=== PATIENT | male | born 1980 | race American Indian/Alaskan Native ===

== ENCOUNTER 2018-12-13 18:20 | Emergency (ER) | payer MEDICAID, MEDICARE ==
[~2018-12-13] VITALS: Ht 157.5 cm; Wt 73.6 kg
[2018-12-13 18:27] VITALS: BP 173/104
[2018-12-13 18:53] LABS: BASOPHILS % (AUTO) 0.6 % (0-1); EOSINOPHILS # (AUTO) 0.1 X10'3 (0-0.9); EOSINOPHILS % (AUTO) 1.7 % (0-6); HEMATOCRIT 23.9 % (42.0-52.0); LYMPHOCYTES % (AUTO) 23.4 % (21-51); MEAN CORPUSCULAR HEMOGLOBIN 30.3 PG (27.0-31.0); MEAN CORPUSCULAR HGB CONC 33.3 g/dL (33.0-36.5); MEAN CORPUSCULAR VOLUME 90.9 FL (78-98); MEAN PLATELET VOLUME 7.9 FL (7.4-10.4); MONOCYTES # (AUTO) 0.5 X10'3 (0-0.9); MONOCYTES % (AUTO) 6.3 % (2-12); NEUTROPHILS # (AUTO) 5.7 X10'3 (1.8-7.7); PLATELET COUNT 187 X10'3 (140-440); RED BLOOD COUNT 2.63 X10'6 (4.70-6.10); RED CELL DISTRIBUTION WIDTH 13.3 % (11.5-14.5); WHITE BLOOD COUNT 8.4 X10'3 (4.5-11.0)
[2018-12-13 19:05] LABS: ALANINE AMINOTRANSFERASE 17 U/L (12-78); ALBUMIN 3.8 G/DL (3.4-5.0); ALBUMIN/GLOBULIN RATIO 1.1 (1.1-1.5); ALKALINE PHOSPHATASE 75 IU/L (46-116); ANION GAP 14 (8-16); ASPARTATE AMINO TRANSFERASE 12 U/L (10-37); BILIRUBIN,TOTAL 0.5 MG/DL (0.1-1.0); BLOOD UREA NITROGEN 65 MG/DL (7-18); BUN/CREATININE RATIO 5.4 (5.4-32.0); CALCIUM 9.3 MG/DL (8.5-10.1); CHLORIDE 105 MMOL/L (99-107); CREATININE 12.03 MG/DL (0.60-1.10); GLUCOSE 147 MG/DL (70-104); POTASSIUM 3.7 MMOL/L (3.5-5.1); SODIUM 141 MMOL/L (135-145); TOTAL CARBON DIOXIDE 21.8 MMOL/L (24-32); TOTAL PROTEIN 7.2 G/DL (6.4-8.2); eGFR 5 ML/MIN
== END 2018-12-13 19:58 | disposition home or self-care (01) ==
LOC: ER 18:22
DX: N18.4 Chronic kidney disease, stage 4 (severe) (principal); Z94.0 Kidney transplant status; Z98.890 Other specified postprocedural states
CPT/HCPCS: 36415; 80053; 85025; 85610; 86885; 86900; 86901; 99283

== ENCOUNTER 2018-12-16 11:22 | Day surgery (SDC) | payer MEDICAID ==
[~2018-12-16] VITALS: Ht 157.5 cm; Wt 74.1 kg
[2018-12-16 11:40] VITALS: BP 162/101
[2018-12-16] MEDS ORDERED: normal saline 1000ml 1,000 ML IV PRN (12:00)
[2018-12-16] MEDS ORDERED: midazolam 2 mg/2 ml injection IV PRN (12:30)
[2018-12-16] MEDS ORDERED: fentaNYL/PF 50MCG/1 ML 2ML syringe IV PRN (12:30)
[2018-12-16] MEDS ORDERED: heparin 1,000 units/ml 10ml inj ICATH ONE (12:30)
[2018-12-16] MEDS ORDERED: LIDOcaine 1%/PF 5ML 10 MG/ML VIAL SQ ONE (12:30)
[2018-12-16] MEDS ORDERED: midazolam 2 mg/2 ml injection ONE (12:33)
[2018-12-16] MEDS ORDERED: LIDOcaine 1%/PF 5ML 10 MG/ML VIAL ONE (12:33)
[2018-12-16] MEDS ORDERED: fentaNYL/PF 50MCG/1 ML 2ML syringe ONE (12:33)
[2018-12-16] MEDS ORDERED: heparin 1,000unit/ml 10ml vial 10 ML ONE (12:33)
[2018-12-16] MEDS ORDERED: MYCO500T PO (12:41)
[2018-12-16] MEDS ORDERED: PRED5TAB PO (12:41)
[2018-12-16] MEDS ORDERED: TACR1CAP28 PO (12:41)
[2018-12-16] MEDS ORDERED: GLIP5TAB13 PO (12:41)
[2018-12-16] MEDS ORDERED: DILT240C90 PO (12:41)
[2018-12-16] MEDS ORDERED: LIDOcaine 1% (10mg/ml) 2ml vial SQ ONE (12:55)
[2018-12-16 13:50] VITALS: BP 169/111
[2018-12-16 14:15] VITALS: BP 193/105
[2018-12-16 14:30] VITALS: BP 192/61
[2018-12-16 14:45] VITALS: BP 172/105
[2018-12-16 15:40] LABS: BASOPHILS % (AUTO) 0.5 % (0-1); EOSINOPHILS # (AUTO) 0.1 X10'3 (0-0.9); EOSINOPHILS % (AUTO) 1.4 % (0-6); HEMATOCRIT 24.2 % (42.0-52.0); HEMOGLOBIN 8.1 g/dl (14.0-17.9); LYMPHOCYTES # (AUTO) 1.7 X10'3 (1.1-4.8); LYMPHOCYTES % (AUTO) 19.1 % (21-51); MEAN CORPUSCULAR HEMOGLOBIN 30.2 PG (27.0-31.0); MEAN CORPUSCULAR HGB CONC 33.5 g/dL (33.0-36.5); MEAN PLATELET VOLUME 7.5 FL (7.4-10.4); MONOCYTES # (AUTO) 0.4 X10'3 (0-0.9); NEUTROPHILS # (AUTO) 6.8 X10'3 (1.8-7.7); PLATELET COUNT 191 X10'3 (140-440); RED BLOOD COUNT 2.69 X10'6 (4.70-6.10); RED CELL DISTRIBUTION WIDTH 13.4 % (11.5-14.5); WHITE BLOOD COUNT 9.1 X10'3 (4.5-11.0)
[2018-12-16 15:54] LABS: ALBUMIN 3.8 G/DL (3.4-5.0); ANION GAP 15 (8-16); BLOOD UREA NITROGEN 67 MG/DL (7-18); BUN/CREATININE RATIO 5.8 (5.4-32.0); CHLORIDE 106 MMOL/L (99-107); CREATININE 11.56 MG/DL (0.60-1.10); GLUCOSE 162 MG/DL (70-104); PHOSPHORUS 4.3 MG/DL (2.3-4.5); POTASSIUM 4.2 MMOL/L (3.5-5.1); SODIUM 143 MMOL/L (135-145); TOTAL CARBON DIOXIDE 21.8 MMOL/L (24-32); eGFR 5 ML/MIN
[2018-12-18 07:17] LABS: HBSAG SCREEN Negative (Negative)
== END 2018-12-16 15:40 | disposition home or self-care (01) ==
LOC: SSTAY O 11:22
PROVIDERS: ATTEND Radiology Diagnostic Radiology
DX: E11.22 Type 2 diabetes mellitus with diabetic chronic kidney disease (principal); I12.0 Hypertensive chronic kidney disease with stage 5 chronic kidney disease or end stage renal disease; N18.5 Chronic kidney disease, stage 5; J44.9 Chronic obstructive pulmonary disease, unspecified; Z94.0 Kidney transplant status; Z79.84 Long term (current) use of oral hypoglycemic drugs; Z79.899 Other long term (current) drug therapy
CPT/HCPCS: 36415; 36558; 71046; 76937; 77001; 80069; 85025; 87340; C1750; C1894; J1644; J2250; J3010; 99152; 99153; A9270

== ENCOUNTER 2018-12-18 19:00 | Emergency (ER) | payer MEDICAID ==
[~2018-12-18] VITALS: Ht 167.6 cm; Wt 73.6 kg
[~2018-12-18 19:00] MED LIST: DILT240C90 PO; GLIP5TAB13 PO; MYCO500T PO; PRED5TAB PO; TACR1CAP28 PO
[2018-12-18 19:01] VITALS: BP 180/102
[2018-12-18] MEDS ORDERED: HYDR-3965 PO (20:00)
== END 2018-12-18 20:06 | disposition home or self-care (01) ==
LOC: ER 19:00
DX: T82.43XA Leakage of vascular dialysis catheter, initial encounter (principal); N18.4 Chronic kidney disease, stage 4 (severe); Z98.890 Other specified postprocedural states; Z94.0 Kidney transplant status; Z79.899 Other long term (current) drug therapy; Y84.1 Kidney dialysis as the cause of abnormal reaction of the patient, or of later complication, without mention of misadventure at the time of the procedure; Y92.89 Other specified places as the place of occurrence of the external cause
CPT/HCPCS: 99283

== ENCOUNTER 2018-12-20 13:53 | Emergency (ER) | payer MEDICAID ==
[~2018-12-20] VITALS: Ht 165.1 cm; Wt 75.0 kg
[~2018-12-20 13:53] MED LIST changes: +HYDR-3965 PO
[2018-12-20 13:54] VITALS: BP 179/102
--- NOTE | 2018-12-20 14:54 | NUR ---
COMPLETED STERILE DRESSING CHANGED FOR DIALYSIS CATHETER. NO BLEEDING NOTED AFTER DRESSING CHANGE.
== END 2018-12-20 14:59 | disposition home or self-care (01) ==
LOC: ER 13:54
DX: T82.43XA Leakage of vascular dialysis catheter, initial encounter (principal); N18.4 Chronic kidney disease, stage 4 (severe); Z98.890 Other specified postprocedural states; Z94.0 Kidney transplant status; Z79.899 Other long term (current) drug therapy; Y84.1 Kidney dialysis as the cause of abnormal reaction of the patient, or of later complication, without mention of misadventure at the time of the procedure; Y92.89 Other specified places as the place of occurrence of the external cause
CPT/HCPCS: 99282

== ENCOUNTER 2018-12-20 15:57 | Inpatient (IN) | payer MEDICAID ==
[~2018-12-20] VITALS: Ht 165.1 cm; Wt 72.7 kg
[2018-12-20] VITALS (7 sets, daily range): BP systolic 176–184; BP diastolic 102–105
[2018-12-20 18:03] LABS: BASOPHILS % (AUTO) 0.4 % (0-1); EOSINOPHILS # (AUTO) 0.2 X10'3 (0-0.9); EOSINOPHILS % (AUTO) 2.2 % (0-6); LYMPHOCYTES # (AUTO) 1.3 X10'3 (1.1-4.8); LYMPHOCYTES % (AUTO) 18.6 % (21-51); MEAN CORPUSCULAR HEMOGLOBIN 30.4 PG (27.0-31.0); MEAN CORPUSCULAR HGB CONC 33.5 g/dL (33.0-36.5); MEAN CORPUSCULAR VOLUME 90.7 FL (78-98); MEAN PLATELET VOLUME 7.3 FL (7.4-10.4); MONOCYTES # (AUTO) 0.5 X10'3 (0-0.9); MONOCYTES % (AUTO) 6.9 % (2-12); NEUTROPHILS # (AUTO) 5.1 X10'3 (1.8-7.7); NEUTROPHILS % (AUTO) 71.9 % (42-75); PLATELET COUNT 151 X10'3 (140-440); RED CELL DISTRIBUTION WIDTH 13.6 % (11.5-14.5); WHITE BLOOD COUNT 7.1 X10'3 (4.5-11.0)
[2018-12-20] MEDS ORDERED: NORMAL SALINE IV ONE (18:15)
[2018-12-20] MEDS ORDERED: DESMOPRESSIN IV ONE (18:15)
[2018-12-20 18:16] LABS: ALANINE AMINOTRANSFERASE 14 U/L (12-78); ALBUMIN 3.5 G/DL (3.4-5.0); ALBUMIN/GLOBULIN RATIO 1.1 (1.1-1.5); ALKALINE PHOSPHATASE 77 IU/L (46-116); ANION GAP 14 (8-16); ASPARTATE AMINO TRANSFERASE 10 U/L (10-37); BILIRUBIN,TOTAL 0.3 MG/DL (0.1-1.0); BLOOD UREA NITROGEN 72 MG/DL (7-18); BUN/CREATININE RATIO 5.3 (5.4-32.0); CHLORIDE 106 MMOL/L (99-107); CREATININE 13.46 MG/DL (0.60-1.10); GLUCOSE 158 MG/DL (70-104); HEMATOCRIT 19.9 % (42.0-52.0); HEMOGLOBIN 6.7 g/dl (14.0-17.9); POTASSIUM 4.6 MMOL/L (3.5-5.1); SODIUM 141 MMOL/L (135-145); TOTAL CARBON DIOXIDE 21.3 MMOL/L (24-32); TOTAL PROTEIN 6.7 G/DL (6.4-8.2); eGFR 4 ML/MIN
[2018-12-20] MEDS ORDERED: ondansetron/PF 4mg/2ml inj IV PRN (20:15)
[2018-12-20] MEDS ORDERED: acetaminophen 325mg tablet PO PRN ×2 (20:15)
--- NOTE | 2018-12-20 20:43 | NUR ---
Received report from Ozzy in the ER. Pt arrived on the unit via wheelchair and was able to transfer easily to the bed with a steady gait. Pt was placed on tele # [id number], VSS, no signs of distress. Will continue to monitor.
--- NOTE | 2018-12-20 23:00 | NUR ---
I contacted Dr. Moreno the pts admitting automatic line set up mechanic regarding BP's of 183/102, 184/105, and 176/102 taken when pt arrived on the unit and while administering blood. MD ordered a one time dose of Cardizem 120mg to be given immediately. Will continue to monitor.
[2018-12-20] MEDS ORDERED: diltiazem CD 120mg capsule (once-daily) PO ONE (23:05)
[2018-12-21] VITALS (8 sets, daily range): BP systolic 144–194; BP diastolic 88–109
--- NOTE | 2018-12-21 00:05 | NUR ---
Received report from Prabhu in the ER. Pt arrived on the unit via gurney. She was able to transfer from the gurney to her bed with moderate assist. Pt wobbly on her feet with mild weakness. Her son has accompanied her and is staying at bedside. VSS, no signs of distress, will continue to monitor. Addendum: 12/21/18 at 0248 by Evelyn Garcia RN note entered on the wrong pt, please disregard.
--- NOTE | 2018-12-21 06:18 | NUR ---
Problems reprioritized. Patient report given, questions answered & plan of care reviewed with Connie GARY and Hortencia GARY.
[2018-12-21 06:34] LABS: BASOPHILS % (AUTO) 0.4 % (0-1); EOSINOPHILS # (AUTO) 0.2 X10'3 (0-0.9); EOSINOPHILS % (AUTO) 1.9 % (0-6); HEMATOCRIT 23.9 % (42.0-52.0); HEMOGLOBIN 8.2 g/dl (14.0-17.9); LYMPHOCYTES # (AUTO) 1.5 X10'3 (1.1-4.8); LYMPHOCYTES % (AUTO) 16.9 % (21-51); MEAN CORPUSCULAR HEMOGLOBIN 31.1 PG (27.0-31.0); MEAN CORPUSCULAR HGB CONC 34.2 g/dL (33.0-36.5); MEAN CORPUSCULAR VOLUME 90.8 FL (78-98); MEAN PLATELET VOLUME 7.8 FL (7.4-10.4); MONOCYTES # (AUTO) 0.7 X10'3 (0-0.9); MONOCYTES % (AUTO) 7.6 % (2-12); NEUTROPHILS # (AUTO) 6.6 X10'3 (1.8-7.7); NEUTROPHILS % (AUTO) 73.2 % (42-75); PLATELET COUNT 150 X10'3 (140-440); RED BLOOD COUNT 2.63 X10'6 (4.70-6.10); WHITE BLOOD COUNT 9.1 X10'3 (4.5-11.0)
--- NOTE | 2018-12-21 06:46 | NUR ---
Patient in room PCU 3013. I have received report from Evelyn GARY and had the opportunity to ask questions and assume patient care. Pt is awake in bed, all needs met at this time, will continue to monitor.
[2018-12-21 06:47] LABS: ALANINE AMINOTRANSFERASE 13 U/L (12-78); ALBUMIN 3.7 G/DL (3.4-5.0); ALBUMIN/GLOBULIN RATIO 1.1 (1.1-1.5); ALKALINE PHOSPHATASE 76 IU/L (46-116); ANION GAP 17 (8-16); ASPARTATE AMINO TRANSFERASE 17 U/L (10-37); BILIRUBIN,TOTAL 0.5 MG/DL (0.1-1.0); BLOOD UREA NITROGEN 78 MG/DL (7-18); CALCIUM 9.1 MG/DL (8.5-10.1); CHLORIDE 104 MMOL/L (99-107); GLUCOSE 83 MG/DL (70-104); MAGNESIUM 2.2 MG/DL (1.5-2.4); PHOSPHORUS 4.6 MG/DL (2.3-4.5); SODIUM 139 MMOL/L (135-145); TOTAL CARBON DIOXIDE 17.6 MMOL/L (24-32); TOTAL PROTEIN 7.1 G/DL (6.4-8.2); eGFR 4 ML/MIN
[2018-12-21 06:48] LABS: POTASSIUM 5.2 MMOL/L (3.5-5.1)
--- NOTE | 2018-12-21 06:51 | NUR ---
Patient in room PCU 3013. I have received report from ABDIRAHMAN Rivas and had the opportunity to ask questions and assume patient care.
[2018-12-21] MEDS ORDERED: MYCOPHENOLATE MOFETIL PO SCH (08:00)
[2018-12-21] MEDS: glipizide 5mg tablet PO SCH (08:00)
[2018-12-21] MEDS ORDERED: DILTIAZEM HCL 120 MG PO SCH (08:00)
[2018-12-21] MEDS: mycophenolate mofetil 250mg capsule PO SCH (08:00)
[2018-12-21] MEDS ORDERED: diltiazem CD 120mg capsule (once-daily) PO SCH (08:00)
[2018-12-21] MEDS ORDERED: heparin 1,000unit/ml 10ml vial 10 ML IV ONE (08:01)
[2018-12-21] MEDS ORDERED: heparin 1,000 units/ml 10ml inj IV ONE (08:05)
[2018-12-21] MEDS ORDERED: heparin 1,000 units/ml 10ml inj HE ONE ×2 (08:05)
[2018-12-21] MEDS ORDERED: albumin (human) 25% 100ml IV 100 ML IV PRN (08:05)
[2018-12-21] MEDS ORDERED: epoetin 20,000 units/ml inj IV ONE (08:05)
[2018-12-21] MEDS: predniSONE 5mg tablet PO SCH (08:19)
[2018-12-21] MEDS: tacrolimus anhydrous 1mg capsule PO SCH (08:24)
[2018-12-21] MEDS ORDERED: labetalol 20mg/4ml (5mg/ml) syringe IV ONE (11:25)
--- NOTE | 2018-12-21 16:28 | NUR ---
Problems reprioritized. Patient report given, questions answered & plan of care reviewed with Anshul GARY patient will be transferred to [facility] [place].
--- NOTE | 2018-12-21 17:00 | NUR ---
REVIEWED PATIENT RECONCILE HOME MEDICATIONS, DISCOVERED PATIENT WAS TAKING IBUPROFEN FOR PAIN MANAGEMENT, EDUCATED PATIENT ON MEDICATION AND SIDE EFFECTS, RECOMMENDED TO PATIENT TO CLEAR WITH DOCTOR FIRST.
--- NOTE | 2018-12-21 18:22 | NUR ---
Problems reprioritized. Patient report given, questions answered & plan of care reviewed with ABDIRAHMAN Tate. Addendum: 12/21/18 at 1822 by Abby Germain RN Amended: Links added.
--- NOTE | 2018-12-21 18:32 | NUR ---
Patient in room ORTHO 4017. I have received report from ABDIRAHMAN Mora and had the opportunity to ask questions and assume patient care.
[2018-12-21] MEDS ORDERED: hydrALAZINE 20mg/ml inj. IV ONE (21:55)
[2018-12-22 06:00] VITALS: BP 172/98
--- NOTE | 2018-12-22 06:00 | NUR ---
Patient in room ORTHO 4017. I have received report from Lea GARY and had the opportunity to ask questions and assume patient care.
[2018-12-22 06:11] LABS: BASOPHILS % (AUTO) 0.6 % (0-1); EOSINOPHILS # (AUTO) 0.1 X10'3 (0-0.9); EOSINOPHILS % (AUTO) 1.5 % (0-6); HEMATOCRIT 24.8 % (42.0-52.0); HEMOGLOBIN 8.5 g/dl (14.0-17.9); LYMPHOCYTES # (AUTO) 1.7 X10'3 (1.1-4.8); MEAN CORPUSCULAR HEMOGLOBIN 30.7 PG (27.0-31.0); MEAN CORPUSCULAR HGB CONC 34.5 g/dL (33.0-36.5); MEAN CORPUSCULAR VOLUME 89.1 FL (78-98); MEAN PLATELET VOLUME 7.3 FL (7.4-10.4); MONOCYTES # (AUTO) 0.8 X10'3 (0-0.9); MONOCYTES % (AUTO) 9.7 % (2-12); NEUTROPHILS # (AUTO) 5.4 X10'3 (1.8-7.7); NEUTROPHILS % (AUTO) 67.2 % (42-75); PLATELET COUNT 163 X10'3 (140-440); RED BLOOD COUNT 2.78 X10'6 (4.70-6.10); RED CELL DISTRIBUTION WIDTH 13.7 % (11.5-14.5)
[2018-12-22 06:19] LABS: ALANINE AMINOTRANSFERASE 16 U/L (12-78); ALBUMIN 3.6 G/DL (3.4-5.0); ALBUMIN/GLOBULIN RATIO 1.1 (1.1-1.5); ALKALINE PHOSPHATASE 84 IU/L (46-116); ANION GAP 12 (8-16); ASPARTATE AMINO TRANSFERASE 13 U/L (10-37); BILIRUBIN,TOTAL 0.5 MG/DL (0.1-1.0); BLOOD UREA NITROGEN 41 MG/DL (7-18); BUN/CREATININE RATIO 4.7 (5.4-32.0); CALCIUM 9.3 MG/DL (8.5-10.1); CHLORIDE 103 MMOL/L (99-107); GLUCOSE 116 MG/DL (70-104); MAGNESIUM 2.2 MG/DL (1.5-2.4); PHOSPHORUS 5.4 MG/DL (2.3-4.5); POTASSIUM 3.9 MMOL/L (3.5-5.1); SODIUM 141 MMOL/L (135-145); TOTAL CARBON DIOXIDE 26.3 MMOL/L (24-32); eGFR 7 ML/MIN
--- NOTE | 2018-12-22 06:20 | NUR ---
Problems reprioritized. Patient report given, questions answered & plan of care reviewed with ABDIRAHMAN Choi.
[2018-12-22] MEDS: mycophenolate mofetil 250mg capsule PO SCH (07:19)
[2018-12-22] MEDS: tacrolimus anhydrous 1mg capsule PO SCH (07:19)
[2018-12-22] MEDS: predniSONE 5mg tablet PO SCH (07:20)
[2018-12-22] MEDS: lisinopril 20mg tablet PO SCH (07:20)
[2018-12-22] MEDS: glipizide 5mg tablet PO SCH (07:20)
[2018-12-22] MEDS: diltiazem CD 120mg capsule (once-daily) PO SCH (07:20)
[2018-12-22] MEDS ORDERED: heparin 1,000unit/ml 10ml vial 10 ML IV ONE (09:03)
[2018-12-22] MEDS ORDERED: epoetin 20,000 units/ml inj IV ONE (09:05)
[2018-12-22] MEDS ORDERED: heparin 1,000 units/ml 10ml inj IV ONE (09:05)
[2018-12-22] MEDS ORDERED: albumin (human) 25% 100ml IV 100 ML IV PRN (09:05)
[2018-12-22] MEDS ORDERED: heparin 1,000 units/ml 10ml inj HE ONE ×2 (09:10)
[2018-12-22] MEDS: hyDRALAzine 10mg tablet PO SCH ×2 (15:28→23:55)
[2018-12-22 18:00] VITALS: BP 134/84
--- NOTE | 2018-12-22 18:00 | NUR ---
Patient in room ORTHO 4017. I have received report from calhoun and had the opportunity to ask questions and assume patient care.
--- NOTE | 2018-12-22 18:29 | NUR ---
Problems reprioritized. Patient report given, questions answered & plan of care reviewed with Nicolas Rn and Mamadou GARY.
[2018-12-22 22:00] VITALS: BP 136/86
[2018-12-23 06:00] VITALS: BP 142/92
--- NOTE | 2018-12-23 06:05 | NUR ---
Patient in room ORTHO 4017. I have received report from Mamadou Portillo, and had the opportunity to ask questions and assume patient care.
[2018-12-23 06:30] LABS: ALANINE AMINOTRANSFERASE 14 U/L (12-78); ALBUMIN 3.5 G/DL (3.4-5.0); ALBUMIN/GLOBULIN RATIO 1.1 (1.1-1.5); ALKALINE PHOSPHATASE 71 IU/L (46-116); ANION GAP 9 (8-16); ASPARTATE AMINO TRANSFERASE 9 U/L (10-37); BILIRUBIN,TOTAL 0.6 MG/DL (0.1-1.0); BLOOD UREA NITROGEN 22 MG/DL (7-18); BUN/CREATININE RATIO 3.6 (5.4-32.0); CALCIUM 9.5 MG/DL (8.5-10.1); CHLORIDE 102 MMOL/L (99-107); CREATININE 6.17 MG/DL (0.60-1.10); GLUCOSE 98 MG/DL (70-104); MAGNESIUM 1.9 MG/DL (1.5-2.4); PHOSPHORUS 4.2 MG/DL (2.3-4.5); POTASSIUM 3.8 MMOL/L (3.5-5.1); SODIUM 138 MMOL/L (135-145); TOTAL CARBON DIOXIDE 26.7 MMOL/L (24-32); TOTAL PROTEIN 6.8 G/DL (6.4-8.2); eGFR 10 ML/MIN
[2018-12-23 06:39] LABS: BASOPHILS % (AUTO) 0.4 % (0-1); EOSINOPHILS # (AUTO) 0.1 X10'3 (0-0.9); EOSINOPHILS % (AUTO) 1.5 % (0-6); HEMATOCRIT 25.6 % (42.0-52.0); HEMOGLOBIN 8.8 g/dl (14.0-17.9); LYMPHOCYTES # (AUTO) 1.6 X10'3 (1.1-4.8); LYMPHOCYTES % (AUTO) 21.2 % (21-51); MEAN CORPUSCULAR HEMOGLOBIN 31.1 PG (27.0-31.0); MEAN CORPUSCULAR HGB CONC 34.3 g/dL (33.0-36.5); MEAN CORPUSCULAR VOLUME 90.5 FL (78-98); MEAN PLATELET VOLUME 7.7 FL (7.4-10.4); MONOCYTES # (AUTO) 0.8 X10'3 (0-0.9); MONOCYTES % (AUTO) 11.3 % (2-12); NEUTROPHILS # (AUTO) 4.8 X10'3 (1.8-7.7); NEUTROPHILS % (AUTO) 65.6 % (42-75); PLATELET COUNT 160 X10'3 (140-440); RED BLOOD COUNT 2.83 X10'6 (4.70-6.10); RED CELL DISTRIBUTION WIDTH 13.9 % (11.5-14.5); WHITE BLOOD COUNT 7.3 X10'3 (4.5-11.0)
--- NOTE | 2018-12-23 06:39 | NUR ---
Problems reprioritized. Patient report given, questions answered & plan of care reviewed with
[2018-12-23] MEDS: glipizide 5mg tablet PO SCH (08:00)
[2018-12-23] MEDS: hyDRALAzine 10mg tablet PO SCH (08:24)
[2018-12-23] MEDS: diltiazem CD 120mg capsule (once-daily) PO SCH (08:24)
[2018-12-23] MEDS: predniSONE 5mg tablet PO SCH (08:25)
[2018-12-23] MEDS: lisinopril 20mg tablet PO SCH (08:25)
[2018-12-23] MEDS: mycophenolate mofetil 250mg capsule PO SCH (09:25)
[2018-12-23] MEDS: tacrolimus anhydrous 1mg capsule PO SCH (09:26)
[2018-12-23 10:00] VITALS: BP 152/98
[2018-12-23 13:19] LABS: HBSAG SCREEN Negative (Negative)
[2018-12-23] MEDS ORDERED: hyDRALAzine tablet PO (13:46)
[2018-12-23] MEDS ORDERED: FOLI0.8T7 PO (13:46)
[2018-12-23] MEDS ORDERED: LISI-600 PO (13:46)
[2018-12-23] MEDS ORDERED: heparin 1,000 units/ml 10ml inj HE ONE ×2 (14:25)
--- NOTE | 2018-12-23 14:35 | NUR ---
Reviewed discharge instructions/meds with pt. Pt verbalized understanding. Pt was finishing up dialysis and will then go to [facility] appt at 15:00. Pt dressed at 15:07. Pt was walked down stairs where family was waiting to drive him to the appt. Pt is alert, oriented and does not have c/o pain at this time.
== END 2018-12-23 14:45 | disposition home or self-care (01) | DRG 206 ==
LOC: ER 15:57 → PCU 3S 20:57 → CMPBEDREQ 21:37 → ORTHO 4S 12-21 16:48
PROVIDERS: ADMIT Internal Medicine Critical Care Medicine; ATTEND Internal Medicine Critical Care Medicine
PROC: 30233N1 Transfusion of Nonautologous Red Blood Cells into Peripheral Vein, Percutaneous Approach (ICD-10-PCS; principal; 2018-12-20)
PROC: 5A1D70Z Performance of Urinary Filtration, Intermittent, Less than 6 Hours Per Day (ICD-10-PCS; 2018-12-21)
PROC: 5A1D70Z Performance of Urinary Filtration, Intermittent, Less than 6 Hours Per Day (ICD-10-PCS; 2018-12-22)
PROC: 5A1D70Z Performance of Urinary Filtration, Intermittent, Less than 6 Hours Per Day (ICD-10-PCS; 2018-12-23)
DX: T82.838A Hemorrhage due to vascular prosthetic devices, implants and grafts, initial encounter (principal); G93.49 Other encephalopathy; I12.0 Hypertensive chronic kidney disease with stage 5 chronic kidney disease or end stage renal disease; M31.0 Hypersensitivity angiitis; N18.6 End stage renal disease; D64.9 Anemia, unspecified; Y83.8 Other surgical procedures as the cause of abnormal reaction of the patient, or of later complication, without mention of misadventure at the time of the procedure; Y84.1 Kidney dialysis as the cause of abnormal reaction of the patient, or of later complication, without mention of misadventure at the time of the procedure; Z79.84 Long term (current) use of oral hypoglycemic drugs; Z94.0 Kidney transplant status; Z99.2 Dependence on renal dialysis; Z79.899 Other long term (current) drug therapy; Y92.89 Other specified places as the place of occurrence of the external cause
CPT/HCPCS: 36415; 71045; 80053; 83735; 84100; 85025; 85610; 86885; 86900; 86901; 86920; 87081; 87340; 96365; 99285; G0257; G0378; J0360; J1644; J2150; J2597; J3490; J7507; J7512; J7517; P9016; Q4081

== ENCOUNTER 2019-05-27 21:20 | Emergency (ER) | payer MEDICAID ==
[~2019-05-27] VITALS: Ht 162.6 cm; Wt 71.0 kg
[~2019-05-27 21:20] MED LIST changes: +FOLI0.8T7 PO; -HYDR-3965 PO; +LISI-600 PO; +hyDRALAzine tablet PO
[2019-05-27 22:17] LABS: BASOPHILS % (AUTO) 0.6 % (0-1); EOSINOPHILS % (AUTO) 0.5 % (0-6); HEMATOCRIT 32.8 % (42.0-52.0); HEMOGLOBIN 11.2 g/dl (14.0-17.9); LYMPHOCYTES # (AUTO) 1.4 X10'3 (1.1-4.8); MEAN CORPUSCULAR HEMOGLOBIN 33.4 PG (27.0-31.0); MEAN CORPUSCULAR HGB CONC 34.2 g/dL (33.0-36.5); MEAN CORPUSCULAR VOLUME 97.6 FL (78-98); MEAN PLATELET VOLUME 7.8 FL (7.4-10.4); MONOCYTES # (AUTO) 0.5 X10'3 (0-0.9); MONOCYTES % (AUTO) 7.4 % (2-12); NEUTROPHILS # (AUTO) 5.2 X10'3 (1.8-7.7); NEUTROPHILS % (AUTO) 71.5 % (42-75); PLATELET COUNT 222 X10'3 (140-440); RED BLOOD COUNT 3.36 X10'6 (4.70-6.10); RED CELL DISTRIBUTION WIDTH 14.3 % (11.5-14.5); WHITE BLOOD COUNT 7.2 X10'3 (4.5-11.0)
[2019-05-27 22:25] LABS: ALANINE AMINOTRANSFERASE 15 U/L (12-78); ALBUMIN 3.8 G/DL (3.4-5.0); ALKALINE PHOSPHATASE 88 IU/L (46-116); ANION GAP 11 (8-16); ASPARTATE AMINO TRANSFERASE 16 U/L (10-37); BILIRUBIN,TOTAL 0.6 MG/DL (0.1-1.0); BLOOD UREA NITROGEN 47 MG/DL (7-18); CALCIUM 9.5 MG/DL (8.5-10.1); CHLORIDE 100 MMOL/L (99-107); CREATININE 9.46 MG/DL (0.60-1.10); GLUCOSE 105 MG/DL (70-104); MAGNESIUM 2.1 MG/DL (1.5-2.4); PHOSPHORUS 6.5 MG/DL (2.3-4.5); POTASSIUM 4.3 MMOL/L (3.5-5.1); SODIUM 139 MMOL/L (135-145); TOTAL CARBON DIOXIDE 28.2 MMOL/L (24-32); TOTAL PROTEIN 7.7 G/DL (6.4-8.2); eGFR 6 ML/MIN
[2019-05-27] MEDS ORDERED: HYDR-4069 PO (22:49)
[2019-05-27] MEDS ORDERED: CALC667C5 PO (22:49)
[2019-05-27] MEDS ORDERED: LISI-600 PO (22:49)
[2019-05-27] MEDS ORDERED: DILT-35 PO (22:49)
[2019-05-27 23:51] VITALS: BP 131/83
== END 2019-05-27 23:53 | disposition home or self-care (01) ==
LOC: ER 21:21
DX: T82.898A Other specified complication of vascular prosthetic devices, implants and grafts, initial encounter (principal); N18.6 End stage renal disease; Z99.2 Dependence on renal dialysis; Z98.890 Other specified postprocedural states; Z79.899 Other long term (current) drug therapy; Y84.1 Kidney dialysis as the cause of abnormal reaction of the patient, or of later complication, without mention of misadventure at the time of the procedure; Y92.89 Other specified places as the place of occurrence of the external cause
CPT/HCPCS: 36415; 80053; 83735; 84100; 85025; 86885; 86900; 86901; 99283